=== PATIENT | male | born 1960 | race Caucasian/White ===

== ENCOUNTER 2017-02-26 18:13 | Emergency (ER) | payer OTHER ==
[~2017-02-26] VITALS: Ht 177.8 cm; Wt 99.8 kg
--- NOTE | ~2017-02-26 | EKG ---
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 : 1960 Requested By: Tran Bradley Order Number: [id number] MD: Ajay Fuentes Measurements Intervals [place] Rate: 74 P: 48 [place]: 169 QRS: 61 QRSD: 103 T: 48 QT: 394 QTc: 438 Interpretive Statements Sinus rhythm Atrial premature complex RSR' in V1 or V2, probably normal variant Minimal ST elevation, anterior leads Compared to ECG 08/07/2007 07:54:23 RSR' in V1 or V2 now present ST (T wave) deviation now present Sinus tachycardia no longer present Electronically Signed On 02-26-2017 20:30:54 CDT by Ajay Fuentes [email or web address] <ELECTRONICALLY SIGNED> By: Ajay Fuentes MD 02/26/172029 26 26 Ajay Fuentes MD /EPI
--- NOTE | ~2017-02-26 | EKG ---
[address] [address] ELECTROCARDIOGRAM REPORT Name: TANNERJEFFDYLAN MCCOLLUM Room #: 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 VILLALOBOS : 1960 Requested By: Tran Bradley Order Number: [id number] MD: Samuel Ascencio Measurements Intervals [place] Rate: 68 P: 56 [place]: 172 QRS: 75 QRSD: 97 T: 60 QT: 412 QTc: 439 Interpretive Statements Sinus rhythm with sinus arrhythmia RSR' in V1 or V2, right VCD Compared to ECG 02/26/2017 18:27:47 Atrial premature complex(es) no longer present Electronically Signed On 02-27-2017 8:30:34 CDT by Samuel Ascencio [email or web address] <ELECTRONICALLY SIGNED> By: Samuel Ascencio MD, [facility] 02/27/17 0830 29 29 Samuel Ascencio MD, [facility] /EPI
[2017-02-26 18:35] LABS: ABSOLUTE NEUTROPHILS 4.3 thou/uL (1.4-8.2); BASOPHILS 0.4 % (0.0-2.0); EOSINOPHILS 3.9 % (0.0-3.0); LYMPHOCYTES 49.2 % (24.0-44.0); MCH 31.2 pg (26.0-34.0); MCHC 33.3 g/dL (28.0-37.0); MCV 93.8 fL (80.0-100.0); MONOCYTES 7.6 % (1.0-8.0); PLATELET COUNT 203 thou/uL (150-400); POLYS 38.9 % (36.0-66.0); RBC 3.52 mil/uL (4.50-6.00); RDW 13.2 % (10.5-14.5)
[2017-02-26 18:39] LABS: MANUAL DIFF NO
[2017-02-26 18:49] LABS: ANION GAP 12 mmol/L (7-16); BUN 18 mg/dL (7-18); CALCIUM 7.8 mg/dL (8.5-10.1); CHLORIDE 106 mmol/L (98-107); CO2 20 mmol/L (21-32); CREATININE 1.1 mg/dL (0.7-1.3); GLUCOSE 120 mg/dL (74-106); POTASSIUM 3.5 mmol/L (3.5-5.1); SODIUM 138 mmol/L (136-145)
[2017-02-26 18:58] LABS: TROPONIN-I < 0.04 ng/mL (<0.04-0.07)
[2017-02-26 21:12] VITALS: BP 132/86
== END 2017-02-26 21:14 | disposition home or self-care (01) ==
LOC: ER 18:13
PROVIDERS: Emergency Medicine
DX: R55 Syncope and collapse (principal); F10.129 Alcohol abuse with intoxication, unspecified; S09.90XA Unspecified injury of head, initial encounter; M79.601 Pain in right arm; E11.9 Type 2 diabetes mellitus without complications; I10 Essential (primary) hypertension; W18.30XA Fall on same level, unspecified, initial encounter; Y93.01 Activity, walking, marching and hiking; Y92.090 Kitchen in other non-institutional residence as the place of occurrence of the external cause; Y99.8 Other external cause status; Y90.6 Blood alcohol level of 120-199 mg/100 ml

== ENCOUNTER 2017-03-06 11:08 | Emergency (ER) | payer OTHER ==
[~2017-03-06] VITALS: Ht 177.8 cm; Wt 99.8 kg
[2017-03-06] MEDS ORDERED: CYMBALTA60 MG (11:27)
[2017-03-06] MEDS ORDERED: ZOCOR20 MG PO (11:27)
[2017-03-06] MEDS ORDERED: NOVOLIN R100 UNIT/1 IJ (11:28)
[2017-03-06] MEDS ORDERED: ASPIR 8181 MG PO (11:29)
[2017-03-06] MEDS ORDERED: PRINIVIL20 MG PO (11:29)
[2017-03-06 12:10] LABS: ABSOLUTE NEUTROPHILS 7.8 thou/uL (1.4-8.2); BASOPHILS 0.7 % (0.0-2.0); EOSINOPHILS 0.8 % (0.0-3.0); HEMATOCRIT 40.2 % (42.0-52.0); HEMOGLOBIN 13.5 gm/dL (14.0-18.0); LYMPHOCYTES 22.6 % (24.0-44.0); MCH 30.9 pg (26.0-34.0); MCHC 33.7 g/dL (28.0-37.0); MCV 91.9 fL (80.0-100.0); MONOCYTES 6.8 % (1.0-8.0); PLATELET COUNT 270 thou/uL (150-400); POLYS 69.1 % (36.0-66.0); RBC 4.38 mil/uL (4.50-6.00); RDW 12.9 % (10.5-14.5); WBC 11.3 thou/uL (4.0-11.0)
[2017-03-06 12:11] LABS: MANUAL DIFF NO
[2017-03-06 12:25] LABS: CALCIUM 9.5 mg/dL (8.5-10.1); CREATININE 1.2 mg/dL (0.7-1.3); POTASSIUM 4.3 mmol/L (3.5-5.1)
[2017-03-06] MEDS ORDERED: NAPROSYN500 MG PO (12:47)
[2017-03-06] MEDS ORDERED: PHENERGAN 25 MG25 M1 PO (12:47)
[2017-03-06 13:19] VITALS: BP 138/81
== END 2017-03-06 13:20 | disposition home or self-care (01) ==
LOC: ER 11:08
PROVIDERS: Emergency Medicine
DX: S09.90XA Unspecified injury of head, initial encounter (principal); J32.9 Chronic sinusitis, unspecified; F07.81 Postconcussional syndrome; R11.2 Nausea with vomiting, unspecified; E11.9 Type 2 diabetes mellitus without complications; I10 Essential (primary) hypertension; E78.00 Pure hypercholesterolemia, unspecified; F10.99 Alcohol use, unspecified with unspecified alcohol-induced disorder; Z79.4 Long term (current) use of insulin; W18.30XA Fall on same level, unspecified, initial encounter; Y93.89 Activity, other specified; Y92.89 Other specified places as the place of occurrence of the external cause; Y99.8 Other external cause status